=== PATIENT | female | born 1965 | race Caucasian/White ===

== ENCOUNTER 2021-04-29 07:57 | Outpatient (REF) | payer BC, SELFPAY ==
--- NOTE | ~2021-04-29 | XR_ITS ---
EXAMINATION: XR KNEE, RIGHT XR KNEE AP STANDING CLINICAL INFORMATION: Pain. COMPARISON: Regressed dated 02/22/2019 TECHNIQUE: Lateral and axial of the right knee. AP bilateral standing view of the knees was obtained. FINDINGS: Bony alignment and mineralization are normal. The right lateral and medial joint space compartments are symmetric and well-maintained. The patellofemoral compartment is abnormally narrowed. There is tricompartment osteoarthritic change of the right knee. There is a large right knee joint effusion. No fracture or dislocation is seen. There is no foreign body. The lateral and medial joint space compartments of the left knee are well-maintained. There is moderate peripheral osteophyte formation of the left lateral and medial joint space compartments. No fracture or dislocation is seen. An accessory ossification center is again seen at the upper pole of the left patella. There is no significant varus or valgus configuration bilaterally. XR/XR knee standing BI IMPRESSION: 1. There is tricompartment osteoarthritic change of the right knee. 2. There is a large right knee joint effusion. 3. There is osteoarthritic change of the lateral and medial joint space compartments of the left knee. 4. No significant varus or valgus configuration is seen.
--- NOTE | ~2021-04-29 | XR_ITS ---
EXAMINATION: XR KNEE, RIGHT XR KNEE AP STANDING CLINICAL INFORMATION: Pain. COMPARISON: Regressed dated 02/22/2019 TECHNIQUE: Lateral and axial of the right knee. AP bilateral standing view of the knees was obtained. FINDINGS: Bony alignment and mineralization are normal. The right lateral and medial joint space compartments are symmetric and well-maintained. The patellofemoral compartment is abnormally narrowed. There is tricompartment osteoarthritic change of the right knee. There is a large right knee joint effusion. No fracture or dislocation is seen. There is no foreign body. The lateral and medial joint space compartments of the left knee are well-maintained. There is moderate peripheral osteophyte formation of the left lateral and medial joint space compartments. No fracture or dislocation is seen. An accessory ossification center is again seen at the upper pole of the left patella. There is no significant varus or valgus configuration bilaterally. XR/XR knee RT 2V IMPRESSION: 1. There is tricompartment osteoarthritic change of the right knee. 2. There is a large right knee joint effusion. 3. There is osteoarthritic change of the lateral and medial joint space compartments of the left knee. 4. No significant varus or valgus configuration is seen.
== END 2021-04-29 07:58 | disposition home or self-care (01) ==
LOC: HO.HOSX 07:57
PROVIDERS: Visit Provider Orthopaedic Surgery
DX: M17.0 Bilateral primary osteoarthritis of knee (principal)
CPT/HCPCS: 20610; 73560; 73565; J1040